=== PATIENT | female | born 1950 | race African-American/Black ===

== ENCOUNTER 2021-02-18 11:18 | Emergency (ER) | payer MEDICARE, OTHER ==
[~2021-02-18] VITALS: Ht 167.6 cm; Wt 68.0 kg
[2021-02-18] MEDS ORDERED: NEOMY/BACITR/POLYMYXIN OINT PACKET. TP ONE (11:45)
[2021-02-18] MEDS ORDERED: LIDOCAINE 2%/EPI 1:100,000 20 ML VIAL. IJ ONE (11:45)
[2021-02-18 12:35] LABS: BASO % 0 % (0-3); EOS % 0 % (0-3); HEMATOCRIT 32.3 % (36.0-47.0); HEMOGLOBIN 10.7 g/dL (12.0-15.5); LYMPH # 1.2 x10^3/uL (1.0-4.8); LYMPH % 19 % (24-48); MEAN CORPUSCULAR HEMOGLOBIN 25 pg (25-35); MEAN CORPUSCULAR HGB CONC 33 g/dL (31-37); MEAN CORPUSCULAR VOLUME 76 fL (79-100); MONO # 0.4 x10^3/uL (0.0-1.1); MONO % 6 % (0-9); NEUT # 4.8 x10^3uL (1.8-7.7); NEUT % 75 % (31-73); PLATELET COUNT 249 x10^3/uL (140-400); RED BLOOD COUNT 4.23 x10^6/uL (3.50-5.40); RED CELL DISTRIBUTION WIDTH 15.9 % (11.5-14.5); WHITE BLOOD COUNT 6.5 x10^3/uL (4.0-11.0)
--- NOTE | 2021-02-18 12:35 | PHYS DOC ---
Past History Additional Past Medical Histor: LUPUS Past Surgical History: Other General Adult EDM: Chief Complaint: MECHANICAL FALL HPI: HPI: Patient is a [age] year old [sex] who presents with [] Review of Systems: Review of Systems: Constitutional: Denies fever or chills Eyes: Denies redness or eye pain HENT: Denies nasal congestion or sore throat Respiratory: Denies cough or shortness of breath Cardiovascular: Denies chest pain or palpitations GI: Denies abdominal pain, nausea, or vomiting : Denies dysuria or hematuria Musculoskeletal: Denies back pain or joint pain Integument: Denies rash or skin lesions Neurologic: Denies headache, focal weakness or sensory changes Complete systems were reviewed and found to be within normal limits, except as documented in this note. Current Medications: Current Meds: Current Medications Medications (Trade) Dose Ordered Sig/Ernestina Start Time Stop Time Status Last Admin Dose Admin Lidocaine/ Epinephrine (Xylocaine 2%-Epi 1:100,000) 20 ml 1X ONCE 02/18/21 11:45 02/18/21 11:46 UNV Neomycin/ Polymyxin/ Bacitracin (Triple Antibiotic Ointment) 1 pkt 1X ONCE 02/18/21 11:45 02/18/21 11:46 UNV Allergies: Allergies: Allergies Coded Allergies Type Severity Reaction Last Updated Verified No Known Drug Allergies 02/18/21 No Physical Exam: PE: Constitutional: Well developed, well nourished, no acute distress, non-toxic appearance HENT: Normocephalic, atraumatic Eyes: Conjunctiva normal, no discharge Neck: Normal range of motion, no tenderness, supple, no meningeal signs Lungs & Thorax: Equal chest rise and fall, no respiratory distress Cardiovascular: Heart rate normal and regular rhythm Abdomen: Soft, no tenderness Skin: Warm, dry, no erythema, no rash Back: No tenderness, no CVA tenderness Extremities: No tenderness, ROM intact, no edema Neurologic: Alert and oriented X 3, no focal deficits noted Psychologic: Affect normal, judgement normal Current Patient Data: Vital Signs: Vital Signs Date Time Temp Pulse Resp B/P (MAP) Pulse Ox O2 Delivery O2 Flow Rate FiO2 02/18/21 11:27 98.1 79 18 157/113 (128) 100 Room Air EKG: EKG: [] Radiology/Procedures: Radiology/Procedures: [] Heart Score: C/O Chest Pain: No Course & Med Decision Making: Course & Med Decision Making Pertinent Labs and Imaging studies reviewed. (See chart for details) Patient stable for discharge with outpatient follow-up with PCP. Discussed findings and plan with patient, who acknowledges understanding and agreement. José Antonio Disclaimer: José Antonio Disclaimer: This electronic medical record was generated, in whole or in part, using a voice recognition dictation system. Laceration/Wound Repair Progress Verbal consent obtained. Time out performed. Hand hygiene utilized. Wound cleaned with ChloraPrep. Anesthesia obtained via a 25-gauge hypodermic needle with () mL's of lidocaine 2% with epinephrine. Copious irrigation performed. Wound well approximated with (sutures/richard). Patient tolerated procedure well and without difficulty. Empiric antibiotic ointment applied prior to sterile dressing. Departure Departure: Impression: Primary Impression: Scalp laceration Qualified Codes: S01.01XA - Laceration without foreign body of scalp, initial encounter Additional Impressions: Hematoma of left auricular region Head contusion Qualified Codes: S00.03XA - Contusion of scalp, initial encounter Fall Qualified Codes: W19.XXXA - Unspecified fall, initial encounter Disposition: HOME / SELF CARE / HOMELESS Condition: STABLE Referrals: NON,STAFF (PCP) Patient Instructions: Auricle Injuries, Facial or Scalp Contusion, [id number], Laceration Care, Adult, [id number] Additional Instructions: Ice area of discomfort to scalp and left ear 20 minutes on then leave off next 20 minutes. Repeat several times daily for the next 2 days. Take pain medication as needed. Your INR today was 2.4 Scripts Hydrocodone Bit/Acetaminophen (HYDROCODONE-APAP 5-325 ) 1 Each Tablet 0.5-1 TAB PO PRN Q6HRS PRN for PAIN, #10 TAB 0 Refills Prov: DIANELYS DAWN DO 02/18/21 DIANELYS DAWN DO Feb 18, 2021 12:35
--- NOTE | 2021-02-18 13:09 | RAD ---
CT HEAD AND C-SPINE WO History: Pain s/p fall, on coumadin with scalp laceration. Comparison: None. Technique: Noncontrast CT of the head and cervical spine. Findings: CT HEAD: There is no evidence for intracranial mass or hemorrhage. There is no hydrocephalus or midline shift. No abnormal extra-axial fluid collections are present. No evidence of acute territorial infarction. 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 The visualized paranasal sinuses and mastoid air cells are clear. There is a left frontotemporal scalp hematoma. Skull is intact. CT CERVICAL SPINE: There is no evidence for fracture in the cervical spine. Reversal of the normal cervical lordosis. Advanced multilevel facet hypertrophy. Degenerative disc disease with uncovertebral hypertrophy great est at C4-C5 with bilateral neural foraminal stenosis at this level. No destructive osseous lesions are seen. Limited evaluation of the soft tissues of the neck and of the upper chest is unremarkable. Impression: 1. No acute intracranial findings. 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 2. No acute osseous abnormality in the cervical spine. Multilevel facet and disc disease. ------- Exposure: One or more of the following individualized dose reduction techniques were utilized for thi s examination: 1. Automated exposure control 2. Adjustment of the mA and/or kV according to patient size 3. Use of iterative reconstruction technique. Electronically signed by: Colton Dior MD (02/18/2021 1:07 PM) [facility]
[2021-02-18] MEDS ORDERED: HYDR-2155 PO (13:45)
[2021-02-18] MEDS ORDERED: HYDROcodone/APAP 5/325MG 1 TAB TABLET PO ONE (14:00)
[2021-02-18 14:16] VITALS: BP 176/104
== END 2021-02-18 15:30 | disposition home or self-care (01) ==
LOC: ER 11:18
DX: S01.01XA Laceration without foreign body of scalp, initial encounter (principal); W18.39XA Other fall on same level, initial encounter; Y93.89 Activity, other specified; Y92.89 Other specified places as the place of occurrence of the external cause; Y99.8 Other external cause status
CPT/HCPCS: 12001; 36415; 70450; 72125; 85025; 85610; 85730; 99284-25